=== PATIENT | male | born 1990 | race Caucasian/White ===

== ENCOUNTER 2025-04-30 13:57 | Emergency (ER) | payer OTHER, SELFPAY ==
[2025-04-30 14:09] VITALS: BP 138/80; PULSE 74; RESP 18; TEMP 36.9; O2SAT 100; BMI 24.3
--- NOTE | 2025-04-30 14:10 | EKG_ITS ---
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
--- NOTE | 2025-04-30 16:53 | ED_ITS ---
HPI - Syncope <Petrona Singh PA-C - Last Filed: 04/30/25 19:12> General Chief Complaint: Syncope Stated Complaint: Sent from [facility] , Fainted today Time Seen by Provider: 04/30/25 16:53 Source: patient Mode of arrival: Ambulatory Limitations: no limitations History of Present Illness HPI narrative: Mr. Zayas is a pleasant 34-year-old gentleman with a past medical history of prior L shoulder surgery who presents to the emergency department via private vehicle for an episode of syncope that occurred earlier today. Patient was initially in the walk-in clinic but was sent to the ER for workup. Around 11:00 a.m. today patient had a syncopal episode while at the book store, no prior history of syncope, no postictal state, he was evaluated by EMS at the time and told everything checked out however he comes to the ER for further evaluation. Patient states that he remembers being in the book store, had been walking around, was standing, when he suddenly felt lightheaded, anxious and then remembers waking up on the ground. His observed him falling backward and becoming stiff and out for about 10 seconds, no tonic-clonic seizure-like activity. Patient states that he did fall backwards in the back of his head and upper back has been sore after but no severe pain. He reports being able to answer questions appropriately as soon as he remembers waking up. He denies any precipitating chest pain, shortness of breath, palpitations, headache, nausea, vomiting, diarrhea, fevers, chills, and an of the symptoms after the syncopal episode either. No family history of sudden cardiac , his uncle does have a pacemaker. Patient states that he ate breakfast and had multiple cups of coffee that morning and did not drink water like he typically does and may have been slightly dehydrated. After being evaluated by EMS he did go and have lunch, ate and drank, and has felt completely normal for the remainder of the day. States that when EMS checked him out he had normal orthostatic vital signs, normal glucose, and normal EKG. No blood thinners. He denies current headache, nausea, vomiting, dizziness, confusion, lightheadedness. No dysuria or hematuria. Related Data Allergies Allergy/AdvReac Type Severity Reaction Status Date / Time amoxicillin Allergy Unknown Verified 04/30/25 14:09 Review of Systems <Petrona Singh PA-C - Last Filed: 04/30/25 19:12> Review of Systems ROS Unobtainable: All systems reviewed & are unremarkable except as noted in HPI and below Patient History <Petrona Singh PA-C - Last Filed: 04/30/25 19:12> Social History Smoking Status: Unknown if ever smoked Smoking Status: Unknown if ever smoked Exam <Petrona Singh PA-C - Last Filed: 04/30/25 19:12> Narrative Exam Narrative: GENERAL: 34 year old male patient appears stated age. Well-developed patient, in no acute distress. HEAD: Atraumatic. Normocephalic. EYES: PERRL. Extraocular motions intact. No scleral icterus. No injection or drainage. ENT: Clear ear canals and pearly larkin TMs bilaterally Nose without bleeding, purulent drainage. Airway patent. NECK: Trachea midline. Cervical ROM intact. No midline tenderness. CARDIOVASCULAR: Regular rate and rhythm. RESPIRATORY: ?Nonlabored respirations. ?Speaking in clear, full sentences. ?Clear to auscultation. Breath sounds equal bilaterally. No wheezes, rales, or rhonchi. ? GASTROINTESTINAL: Abdomen soft, non-tender, nondistended. EXTREMITIES: No LE edema BACK: Nontender, no bruising or wounds. NEURO: AOx3. ?Clear speech. ?Moves all 4 extremities appropriately. No facial asymmetry. Sensation intact to light touch throughout the upper and lower extremities. SKIN: No rash or erythema of visible areas Initial Vital Signs Initial Vital Signs: Vital Signs Temperature 98.5 F 04/30/25 14:09 Pulse Rate 74 04/30/25 14:09 Respiratory Rate 18 04/30/25 14:09 Blood Pressure 138/80 04/30/25 14:09 Pulse Oximetry 100 04/30/25 14:09 Oxygen Delivery Method Room Air 04/30/25 14:09 <Ayo Morataya MD - Last Filed: 04/30/25 23:20> Initial Vital Signs Initial Vital Signs: Vital Signs Temperature 98.5 F 04/30/25 14:09 Pulse Rate 74 04/30/25 14:09 Respiratory Rate 18 04/30/25 14:09 Blood Pressure 138/80 04/30/25 14:09 Pulse Oximetry 100 04/30/25 14:09 Oxygen Delivery Method Room Air 04/30/25 14:09 Scores <Petrona Singh PA-C - Last Filed: 04/30/25 19:12> [place] CT Head Rule Age <16 years old: No Patient on blood thinners: No Seizure after injury: No Exclusion: Patient NOT Excluded, Proceed to next steps GCS < 15 at 2 hr post trauma: No Suspected open or depressed skull fracture: No Any sign of basilar skull fracture (hemotympanum, raccoon eyes, Garcia's sign, CSF yamile-/rhinorrhea): No Two or more episodes of vomiting: No Age greater or equal to 65 years: No Retrograde amnesia to the event greater or equal to 30 min: No Dangerous Mechanism (pedestrian vs. mv, occupant ejected from mv, fall from >3 ft or > 5 stairs): No Recommendation: CT unnecessary <Ayo Morataya MD - Last Filed: 04/30/25 23:20> [place] CT Head Rule Exclusion: Patient NOT Excluded, Proceed to next steps Recommendation: CT unnecessary Course <Petrona Singh PA-C - Last Filed: 04/30/25 19:12> Orders Ordered: ED Orders 04/30/25 17:07 XR chest 1V Stat 04/30/25 17:09 CBC Auto Diff [Complete Blood Count AUTO DIFF] Stat CMP [Comprehensive Metabolic Panel] Stat TSH [Thyroid Stimulating Hormone] Stat Troponin & CK Cardiac Panel Stat Discontinued Medications Sodium Chloride (Normal Saline 0.9%) 1,000 mls @ 1,000 mls/hr IV BOLUS ONE Stop: 04/30/25 18:07 Last Infusion: 04/30/25 18:19 Dose: Infused Documented By: Admin: 04/30/25 17:14 Dose: 1,000 mls/hr Documented By: JOSEPH Vital Signs Vital signs: Vital Signs - 8 hr 04/30/25 17:05 04/30/25 17:30 04/30/25 18:00 Pulse Rate 68 74 74 Respiratory Rate 16 16 16 Blood Pressure 133/81 134/77 134/77 Pulse Oximetry 99 98 96 Oxygen Delivery Method Room Air Room Air Room Air <Ayo Morataya MD - Last Filed: 04/30/25 23:20> Orders Ordered: ED Orders 04/30/25 17:07 XR chest 1V Stat 04/30/25 17:09 CBC Auto Diff [Complete Blood Count AUTO DIFF] Stat CMP [Comprehensive Metabolic Panel] Stat TSH [Thyroid Stimulating Hormone] Stat Troponin & CK Cardiac Panel Stat Discontinued Medications Sodium Chloride (Normal Saline 0.9%) 1,000 mls @ 1,000 mls/hr IV BOLUS ONE Stop: 04/30/25 18:07 Last Infusion: 04/30/25 18:19 Dose: Infused Documented By: Admin: 04/30/25 17:14 Dose: 1,000 mls/hr Documented By: EB Vital Signs Vital signs: Vital Signs - 8 hr 04/30/25 17:05 04/30/25 17:30 04/30/25 18:00 Pulse Rate 68 74 74 Respiratory Rate 16 16 16 Blood Pressure 133/81 134/77 134/77 Pulse Oximetry 99 98 96 Oxygen Delivery Method Room Air Room Air Room Air MDM - Syncope <Petrona Singh PA-C - Last Filed: 04/30/25 19:12> Medical Records Medical records narrative: Reviewed [facility] note Lab Data 04/30/25 17:09 04/30/25 17:09 Labs: Lab Results 04/30/25 Range/Units 17:09 WBC 9.3 (4.5-11.0) X10^3/uL RBC 5.37 (4.5-5.9) X10^6/uL Hgb 17.1 (13.5-17.5) g/dL Hct 49.4 (41-53) % MCV 91.9 (80-100) fL MCH 31.9 (26-34) PG MCHC 34.7 (30-36) % RDW 13.2 (11.6-14.8) % Plt Count 249 (150-400) X10^3/uL Neut % (Auto) 63.9 (50-75) % Lymph % (Auto) 26.7 (25-40) % [place] % (Auto) 5.2 (3-14) % Eos % (Auto) 3.4 (2-4) % Baso % (Auto) 0.8 (0-2) % Neut # (Auto) 5900 (8939-9210) /uL Lymph # (Auto) 2500 (2570-2112) /uL [place] # (Auto) 500 (0-900) /uL Eos # (Auto) 300 (0-450) /uL Baso # (Auto) 100 (0-100) /uL Sodium 139 (137-145) mmol/L Potassium 3.9 (3.4-5.1) mmol/L Chloride 104 (98-107) mmol/L Carbon Dioxide 28 (22-32) mmol/L BUN 13 (9-20) mg/dL Creatinine 1.00 (0.66-1.25) mg/dL Estimated GFR > 60 (>60) mL/min BUN/Creatinine Ratio 13.0 (6-22) Glucose 88 (70-99) mg/dL Calcium 9.4 (8.4-10.2) mg/dL Total Bilirubin 0.5 (0.2-1.3) mg/dL AST 38 (17-59) IU/L ALT 49 (<50) IU/L Alkaline Phosphatase 76 (38-126) U/L Total Creatine Kinase 133 (55-170) U/L Troponin I < 0.012 (0.01-0.034) ng/mL Total Protein 8.6 H (6.3-8.2) g/dL Albumin 5.1 H (3.5-5.0) g/dL Globulin 3.5 (1.7-4.1) g/dL Albumin/Globulin Ratio 1.5 (1.0-2.8) TSH 1.10 (0.47-4.68) uIU/mL Imaging Data Chest x-ray: Radiologist's Impression: PROCEDURE: XR CHEST 1V INDICATIONS: syncope TECHNIQUE: One view of the chest was acquired. COMPARISON: None. FINDINGS: Surgical changes and devices: None. Lungs and pleura: Lungs are clear. No pleural effusions or pneumothorax. Mediastinum: Mediastinal contours appear normal. Heart size is normal. Bones and chest wall: No suspicious bony lesions. Overlying soft tissues appear unremarkable. IMPRESSION: No acute cardiopulmonary abnormality is seen. Approved by: Wenceslao Stewart M.D. on 04/30/2025 at 17:30 MDM Narrative Medical decision making narrative: 34-year-old gentleman with a past medical history of prior L shoulder surgery who presents to the emergency department via private vehicle for an episode of syncope that occurred earlier today. Differential diagnosis includes but is not limited to vasovagal syncope, hypoglycemia, dehydration, orthostasis, arrhythmia, etc. On exam patient is in no acute distress, nontoxic appearing, no focal neurologic deficits, no visible trauma, vital signs within normal limits. He feels baseline and felt baseline relatively soon after passing out. He did fall to the ground onto his back however is not experiencing severe pain, neurologic changes, nausea or vomiting, [place] CT head negative. EKG reveals normal sinus rhythm with sinus arrhythmia, with a rate of 82 beats per minute, QTC of 413. We will obtain CBC, CMP, TSH, chest x-ray, troponin and CK, treat with IV fluids. Lab work overall reassuring with negative troponin, normal CK, normal WBC count 9.3 hemoglobin 17.1 hematocrit 49.4, platelets 249. Normal sodium 139 potassium 3.9, BUN 13 creatinine 1.00, no baseline creatinine on file. Glucose 88. Slight elevation total protein 8.6 albumin 5.1. TSH normal 1.10. Chest x-ray no acute abnormality. Discussed all lab work and imaging results with patient. At this time patient is suspicious that he may have been dehydrated which prompted his symptoms, we discussed frequent hydration, PCP follow up for further management, strict ER return precautions. Patient feels comfortable with this plan and is eager for discharge home, all vital signs within normal limits, ambulatory and stable for discharge. <Ayo Morataya MD - Last Filed: 04/30/25 23:20> Lab Data Labs: Lab Results 04/30/25 Range/Units 17:09 WBC 9.3 (4.5-11.0) X10^3/uL RBC 5.37 (4.5-5.9) X10^6/uL Hgb 17.1 (13.5-17.5) g/dL Hct 49.4 (41-53) % MCV 91.9 (80-100) fL MCH 31.9 (26-34) PG MCHC 34.7 (30-36) % RDW 13.2 (11.6-14.8) % Plt Count 249 (150-400) X10^3/uL Neut % (Auto) 63.9 (50-75) % Lymph % (Auto) 26.7 (25-40) % [place] % (Auto) 5.2 (3-14) % Eos % (Auto) 3.4 (2-4) % Baso % (Auto) 0.8 (0-2) % Neut # (Auto) 5900 (9345-3234) /uL Lymph # (Auto) 2500 (6594-0325) /uL [place] # (Auto) 500 (0-900) /uL Eos # (Auto) 300 (0-450) /uL Baso # (Auto) 100 (0-100) /uL Sodium 139 (137-145) mmol/L Potassium 3.9 (3.4-5.1) mmol/L Chloride 104 (98-107) mmol/L Carbon Dioxide 28 (22-32) mmol/L BUN 13 (9-20) mg/dL Creatinine 1.00 (0.66-1.25) mg/dL Estimated GFR > 60 (>60) mL/min BUN/Creatinine Ratio 13.0 (6-22) Glucose 88 (70-99) mg/dL Calcium 9.4 (8.4-10.2) mg/dL Total Bilirubin 0.5 (0.2-1.3) mg/dL AST 38 (17-59) IU/L ALT 49 (<50) IU/L Alkaline Phosphatase 76 (38-126) U/L Total Creatine Kinase 133 (55-170) U/L Troponin I < 0.012 (0.01-0.034) ng/mL Total Protein 8.6 H (6.3-8.2) g/dL Albumin 5.1 H (3.5-5.0) g/dL Globulin 3.5 (1.7-4.1) g/dL Albumin/Globulin Ratio 1.5 (1.0-2.8) TSH 1.10 (0.47-4.68) uIU/mL [facility] Narrative Medical decision making narrative: 34-year-old gentleman with a past medical history of prior L shoulder surgery who presents to the emergency department via private vehicle for an episode of syncope that occurred earlier today. Differential diagnosis includes but is not limited to vasovagal syncope, hypoglycemia, dehydration, orthostasis, arrhythmia, etc. On exam patient is in no acute distress, nontoxic appearing, no focal neurologic deficits, no visible trauma, vital signs within normal limits. He feels baseline and felt baseline relatively soon after passing out. He did fall to the ground onto his back however is not experiencing severe pain, neurologic changes, nausea or vomiting, [place] CT head negative. EKG reveals normal sinus rhythm with sinus arrhythmia, with a rate of 82 beats per minute, QTC of 413. We will obtain CBC, CMP, TSH, chest x-ray, troponin and CK, treat with IV fluids. Lab work overall reassuring with negative troponin, normal CK, normal WBC count 9.3 hemoglobin 17.1 hematocrit 49.4, platelets 249. Normal sodium 139 potassium 3.9, BUN 13 creatinine 1.00, no baseline creatinine on file. Glucose 88. Slight elevation total protein 8.6 albumin 5.1. TSH normal 1.10. Chest x-ray no acute abnormality. Discussed all lab work and imaging results with patient. At this time patient is suspicious that he may have been dehydrated which prompted his symptoms, we discussed frequent hydration, PCP follow up for further management, strict ER return precautions. Patient feels comfortable with this plan and is eager for discharge home, all vital signs within normal limits, ambulatory and stable for discharge. I was available for consultation throughout this patient's visit with the physician's child development assistant. I did not see the patient myself. Discharge Plan Departure Patient Disposition: Home Clinical Impression: Syncope Qualifiers: Syncope type: unspecified Qualified Code(s): R55 - Syncope and collapse Instructions: DI for Syncope in Adults (Fainting) Activity Restrictions/Additional Instructions: Dear Mr. Zayas, Thank you for coming to the emergency department. Today you were evaluated for an episode of syncope or passing out. Your chest x-ray, EKG, lab work, cardiac enzymes were all reassuring. At this time I would like you to rest, hydrate, follow up with the primary care doctor for further management. Please return to the emergency department immediately if you develop chest pain, shortness of breath, another syncopal episode or near syncopal episode, severe headache, vomiting or any other concerns. Please follow up with your primary care doctor within the next 2-3 days for ER follow-up. (If you do not have a PCP you can call [phone]. ?to schedule an appointment with an [facility] Primary Care Provider) IF YOU DEVELOP ANY NEW OR WORSENING SYMPTOMS, RETURN TO THE ER! Please read the attached instructions, they highlight more specific treatments and interventions for you at home. Thank you for letting me participate in your care, Petrona Singh PA-C Stand Alone Forms: Patient Portal/API
[2025-04-30 17:05] VITALS: BP 133/81; PULSE 68; RESP 16; O2SAT 99
--- NOTE | 2025-04-30 17:07 | DI.RAD.S_ITS ---
PROCEDURE: XR CHEST 1V INDICATIONS: syncope TECHNIQUE: One view of the chest was acquired. COMPARISON: None. FINDINGS: Surgical changes and devices: None. Lungs and pleura: Lungs are clear. No pleural effusions or pneumothorax. Mediastinum: Mediastinal contours appear normal. Heart size is normal. Bones and chest wall: No suspicious bony lesions. Overlying soft tissues appear unremarkable. IMPRESSION: No acute cardiopulmonary abnormality is seen. Approved by: Wenceslao Stewart M.D. on 04/30/2025 at 17:30
[2025-04-30] MEDS: SODIUM CHLORIDE 0.9% 1,000 ML 1000 ML IV (17:14)
[2025-04-30 17:18] LABS: Add Manual Diff / Slide Review NO; Hematocrit 49.4 % (41-53); Hemoglobin 17.1 g/dL (13.5-17.5); Lymphocytes Absolute Auto 2500 /uL (1100-4500); Mean Corpuscular HGB Conc 34.7 % (30-36); Mean Corpuscular Hemoglobin 31.9 PG (26-34); Mean Corpuscular Volume 91.9 fL (80-100); Platelet Count 249 X10^3/uL (150-400)
[2025-04-30 17:25] LABS: Alanine Aminotransferase 49 IU/L (<50); Albumin 5.1 g/dL (3.5-5.0); Albumin Globulin Ratio 1.5 (1.0-2.8); Alkaline Phosphatase 76 U/L (38-126); Blood Urea Nitrogen 13 mg/dL (9-20); Calcium 9.4 mg/dL (8.4-10.2); Carbon Dioxide 28 mmol/L (22-32); Chloride 104 mmol/L (98-107); Creatine Kinase 133 U/L (55-170); Estimated Glomerular Filt Rate > 60 mL/min (>60); Globulin 3.5 g/dL (1.7-4.1); Glucose 88 mg/dL (70-99); HEMOLYSIS 16 (0-50); Potassium 3.9 mmol/L (3.4-5.1); Sodium 139 mmol/L (137-145); Total Protein 8.6 g/dL (6.3-8.2)
[2025-04-30 17:30] VITALS: BP 134/77; PULSE 74; RESP 16; O2SAT 98
[2025-04-30 17:37] LABS: Troponin I < 0.012 ng/mL (0.01-0.034)
[2025-04-30 17:59] LABS: Thyroid Stimulating Hormone 1.10 uIU/mL (0.47-4.68)
[2025-04-30 18:00] VITALS: BP 134/77; PULSE 74; RESP 16; O2SAT 96
== END 2025-04-30 18:20 | disposition home or self-care (01) ==
PROVIDERS: Emergency Provider Physician Assistant
DX: R55 Syncope and collapse (principal)
CPT/HCPCS: 71045; 80053; 82550; 84443; 84484; 85025; 93005; 99283; 99284; J7030